=== PATIENT | male | born 2000 | race Caucasian/White ===

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

== ENCOUNTER → 2020-01-26 10:18 | Outpatient (CLI) | payer OTHER, SELFPAY ==
--- NOTE | 2020-01-26 10:22 | MR_ITS ---
PROCEDURE: MR HEAD/BRAIN WO/W CON CLINICAL INDICATION: F/U PINEAL CYST f/u pineal cyst. hx seizures. headaches. symptoms x2yrs. COMPARISON: MR MR HEAD/BRAIN WO/W CON from 10/27/2018 TECHNIQUE: Routine multiplanar multi echo sequences are performed without gadolinium enhancement. FINDINGS: No midline shift, mass effect, intracranial hemorrhage, or hydrocephalus. No evidence of acute infarction. No enhancing lesions are evident. The cerebellopontine angle, cerebellum, and brainstem are unremarkable. There is a 12 mm pineal cyst once again noted not significantly changed. No mastoid effusion. There is bilateral maxillary mucosal thickening and moderate ethmoid mucosal thickening. A left-sided sphenoid sinus retention cyst is present. No sinus air-fluid level. IMPRESSION: Overall stable MRI appearance of the brain. No change in the 12 mm pineal cyst. Paranasal sinus disease once again noted Dictated by: Abdulkadir Lima MD 01/27/2020 08:44 Abdulkadir Lima MD in [place] 01/27/2020 08:44
== END ==
PROVIDERS: PCP Family Medicine; Visit Provider Psychiatry & Neurology Clinical Neurophysiology
DX: E34.8 Other specified endocrine disorders (principal)
CPT/HCPCS: 70553; A9576

== ENCOUNTER → 2021-02-24 09:51 | Outpatient (CLI) | payer OTHER, SELFPAY ==
--- NOTE | 2021-02-24 09:56 | MR_ITS ---
PROCEDURE: MR HEAD/BRAIN WO/W CON CLINICAL INDICATION: PINEAL GLAND CYST COMPARISON: MR MR HEAD/BRAIN WO/W CON from 01/26/2020 TECHNIQUE: Routine multiplanar multi echo sequences are performed without and with gadolinium enhancement. FINDINGS: No midline shift, mass effect, intracranial hemorrhage, or hydrocephalus is evident. The cerebellopontine angles, cerebellum, brainstem and mid brain have an unremarkable appearance. Pineal cyst is once again noted smaller compared to the previous exam 9 x 6 mm previously 12 x 9 mm.. No definite cyst wall enhancement. The pituitary, optic chiasm, corpus callosum, and craniocervical junction have an unremarkable appearance. There is severe mucosal thickening involving the floor of the left maxillary sinus progressed since the previous exam. These areas of thickening have a lobular contour may represent retention cysts. Mild mucosal thickening right maxillary sinus and moderate mucosal thickening of the ethmoid sinuses also with a somewhat lobular component. No left sphenoid sinus. There is a complex oval area of signal intensity with peripheral increased T2 signal and central circular area decreased T2 signal measuring approximately 1 cm. This is directly adjacent to the optic foramen. Consider CT of this region without and with contrast for further evaluation for better analysis and to determine the bony integrity. IMPRESSION: 1. The pineal cyst appears slightly smaller. 2. Paranasal sinus disease which is progressed in the left maxillary area. 3. There is a complex oval area of signal intensity with peripheral increased T2 signal and central circular area decreased T2 signal measuring approximately 1 cm in the region of the left sphenoid sinus superiorly. Orbital/sinus. This is directly adjacent to the optic foramen. Consider CT of this region without and with contrast for further evaluation for better analysis and to determine the bony integrity Dictated by: Abdulkadir Lima MD 02/25/2021 10:33 Abdulkadir Lima MD in [place] 02/25/2021 10:33
== END ==
PROVIDERS: PCP Family Medicine; Visit Provider Psychiatry & Neurology Clinical Neurophysiology
DX: E34.8 Other specified endocrine disorders (principal)
CPT/HCPCS: 70553; A9576

== ENCOUNTER → 2021-03-21 08:32 | Outpatient (CLI) | payer OTHER, SELFPAY ==
--- NOTE | 2021-03-21 08:37 | CT_ITS ---
FINAL REPORT TECHNIQUE: Thin section axial images were obtained from skull base to vertex without contrast. CLINICAL HISTORY: BRAIN MASS OR LESION Attention to the abnormality of the left sphenoid sinus superiorly COMPARISON: MRI dated February 24, 2021 FINDINGS: There is no mass effect or midline shift. There is no hydrocephalus. The ventricles are symmetric in size and configuration. There is no extra-axial or intraparenchymal hemorrhage. The posterior fossa is without acute abnormality. The basilar cisterns are preserved. There is mucoperiosteal thickening in the bilateral maxillary sinuses and ethmoid air cells. An abnormality in the left sphenoid sinus measures 8 mm favoring a mucous retention cyst or polyp. No acute osseous abnormality is identified. IMPRESSION: No acute intracranial abnormality. Abnormality in the left sphenoid sinus favors a mucous retention cyst or polyp. Reviewed, Interpreted and Dictated by Maura De Jesus MD Transcribed by Charli Blackmon Authenticated by Maura De Jesus MD on 03/21/2021 10:11:59 AM [facility]
== END ==
PROVIDERS: PCP Family Medicine; Visit Provider Psychiatry & Neurology Clinical Neurophysiology
DX: G93.9 Disorder of brain, unspecified (principal)
CPT/HCPCS: 70450

== ENCOUNTER → 2021-06-16 08:44 | Outpatient (CLI) | payer OTHER, SELFPAY ==
--- NOTE | 2021-06-16 08:48 | MR_ITS ---
FINAL REPORT CLINICAL HISTORY: BRAIN LESION, PINEAL GLAND CYST. HX SEIZURES X3YKS AGO. 20ML PROHANCE. COMPARISON: 02/24/2021 FINDINGS: Multiplanar MR imaging of the brain was performed without and with contrast with attention to the pituitary. There is no evidence of intracranial hemorrhage or mass. No abnormal extra-axial fluid collection is seen. The ventricular size is within normal limits. There is no evidence of shift of the midline structures. The posterior fossa and brainstem have an unremarkable appearance. No area of abnormal restricted diffusion is identified. There is a persistent, ovoid focus in the left sphenoid sinus measuring 8 mm, favor focal mucosal thickening. There is also mucosal thickening of multiple ethmoid air cells and maxillary sinuses which has partially improved. Otherwise, no abnormal contrast enhancement is seen. Normal major vessel vascular flow voids are noted. The pituitary gland is within normal limits with respect to size. There is a stable pineal cyst measuring 9 x 6 mm. The pituitary stalk is midline. There is no suprasellar mass. The optic chiasm is normal. IMPRESSION: No acute intracranial abnormality identified. Stable pineal cyst. Persistent ovoid focus in the left sphenoid sinus, favor focal mucosal thickening. Reviewed, Interpreted and Dictated by Jw Franco III, MD Transcribed by Julianne Farley Authenticated by Jw Franco III, MD on 06/16/2021 11:23:44 AM [facility][1]
== END ==
PROVIDERS: PCP Family Medicine; Visit Provider Physician Assistant
DX: G93.9 Disorder of brain, unspecified (principal); E34.8 Other specified endocrine disorders
CPT/HCPCS: 70553; A9576

== ENCOUNTER 2021-11-08 09:32 | Emergency (ER) | payer OTHER, SELFPAY ==
--- NOTE | 2021-11-08 10:04 | EXP.UTC ---
Discharge Plan Disposition Patient Disposition: Home, Self-Care Condition: Good Chief Complaint: Upper Respiratory Infection Prescriptions Prescriptions: New prednisone 20 mg tablet 20 mg PO BID Qty: 10 0RF dextromethorphan-guaifenesin [Mucinex DM] 60-1,200 mg tablet extended release 12 hr 1 tab PO DAILY Qty: 20 0RF No Action esomeprazole magnesium 20 mg capsule,delayed release(DR/EC) 20 mg PO DAILY Zyrtec 10 mg capsule 10 mg PO DAILY vitamin B complex [B Complex 1] Tablet 1 tab PO DAILY levetiracetam [Keppra] 500 mg tablet 500 mg PO DIRECTED 30 Days Qty: 90 1RF Rx Instructions: Take 1 tablet (500mg) each morning. Take 2 tablets (1000mg) each night. azithromycin 250 MG tablet 250 mg PO UD DOSE PK Qty: 6 0RF Rx Instructions: Take two (2) tablets today, then one (1) tablet days #2 thru #5 methylprednisolone 4 MG tablets,dose pack 4 mg PO DIRECTED 6 Days Qty: 21 0RF rixbrshdduyyviu-yxamhgwfn-YR 118 ML syrup 5 ml PO Q6HP PRN (Reason: Cough) Qty: 240 0RF Briviact 100 mg tablet 100 mg PO DAILY Label Comments: TAKE 1 TABLET BY MOUTH TWICE DAILY propranolol 40 mg tablet 40 mg PO BID Label Comments: TAKE 1 TABLET BY MOUTH TWICE DAILY lacosamide 200 mg tablet 200 mg PO DAILY Label Comments: TAKE 1 TABLET BY MOUTH TWICE DAILY Referrals Follow up/Referrals: Aysha Orellana APRN [Primary Care Provider] - See instructions Clinical Impressions Clinical Impression: Close exposure to 2019-nCoV, Upper respiratory infection Discharge ED Provider: Candi Taylor [facility] General Chief complaint: Upper Respiratory Infection Stated complaint: sore throat, runny nose, h/a Time Seen by Provider: 11/08/21 10:04 History of Present Illness Provider Complaint: Sore throat, runny nose, headache since this am. History of epilepsy. Mom and sisters had COVID19 last week. Severity: mild Relieving factors: none Exacerbating factors: none Associated symptoms: denies other symptoms Treatments prior to arrival: none Related Data Home Medications Medication Instructions Recorded Confirmed cetirizine 10 mg capsule (Zyrtec) 10 mg PO DAILY allergies 01/10/18 09/02/18 esomeprazole magnesium 20 mg 20 mg PO DAILY GERD 01/10/18 09/02/18 capsule,delayed release vitamin B complex (B Complex 1) 1 tab PO DAILY 08/04/18 09/02/18 brivaracetam 100 mg tablet 100 mg PO DAILY seizure 11/08/21 11/08/21 (Briviact) lacosamide 200 mg tablet 200 mg PO DAILY seizure 11/08/21 11/08/21 propranolol 40 mg tablet 40 mg PO BID seizure 11/08/21 11/08/21 Previous Rx's Medication Instructions Recorded levetiracetam 500 mg tablet 500 mg PO DIRECTED seizure 30 10/05/18 (Keppra) days #90 tabs azithromycin 250 mg tablet 250 mg PO UD DOSE PK #6 tabs 11/13/18 peziwmucwvwewas-hxmjdemwjipcoks-OK 5 ml PO Q6HP PRN Cough ##240 11/13/18 2 mg-30 mg-10 mg/5 mL oral syrup methylprednisolone 4 mg tablets in 4 mg PO DIRECTED 6 days ##21 11/13/18 a dose pack dextromethorphan-guaifenesin ER 60 1 tab PO DAILY #20 tabs 11/08/21 mg-1,200 mg tab,extend release,12hr (Mucinex DM) prednisone 20 mg tablet 20 mg PO BID #10 tabs 11/08/21 Allergies Allergy/AdvReac Type Severity Reaction Status Date / Time No Known Allergies Allergy Verified 11/08/21 10:11 [facility] Medical History (Updated 11/08/21 @ 10:27 by CORTNEY Molina) Abnormal EKG Abnormal Holter monitor finding Dizziness Numbness and tingling of both feet Palpitations Seizure disorder Social History Smoking Status: Never smoker second hand exposure: No alcohol intake: never substance use type: denies use current occupational status: student household members: family housing: house ROS Obtained: Yes All systems reviewed & no additional complaints except as documented Constitutional C
[2021-11-08 10:08] VITALS: BP 129/77; PULSE 87; RESP 16; TEMP 36.5; O2SAT 100; BMI 29.1
[2021-11-08 10:44] VITALS: BP 129/77; PULSE 87; RESP 16; TEMP 36.5
== END 2021-11-08 10:45 | disposition home or self-care (01) ==
PROVIDERS: Emergency Provider Physician Assistant; PCP Nurse Practitioner Family
DX: U07.1 COVID-19
CPT/HCPCS: 99212; C9803; G0463; U0003; U0005

== ENCOUNTER → 2022-02-17 11:40 | Outpatient (CLI) | payer OTHER, SELFPAY | PROVIDERS: PCP Nurse Practitioner Family; Visit Provider Psychiatry & Neurology Clinical Neurophysiology | DX: E34.8 Other specified endocrine disorders (principal); G40.009 Localization-related (focal) (partial) idiopathic epilepsy and epileptic syndromes with seizures of localized onset, not intractable, without status epilepticus ==

== ENCOUNTER → 2022-02-18 09:53 | Outpatient (CLI) | payer OTHER, SELFPAY ==
--- NOTE | 2022-02-18 10:06 | MR_ITS ---
FINAL REPORT CLINICAL HISTORY: PINEAL GLAND CYST seizures when 17 last one 3 years ago f/u pineal gland cyst COMPARISON: 06/16/2021 FINDINGS: Multiplanar MR imaging of the brain was performed without and with contrast. There is no evidence of intracranial hemorrhage. There is a stable 9 x 6 mm pineal cyst. No acute mass is identified. No abnormal extra-axial fluid collection is seen. The ventricular size is within normal limits. There is no evidence of shift of the midline structures. The posterior fossa and brainstem have an unremarkable appearance. No area of abnormal restricted diffusion is identified. No abnormal contrast enhancement is seen. Normal major vessel vascular flow voids are noted. There is mucosal thickening in multiple sinuses. IMPRESSION: No acute intracranial abnormality identified. Stable pineal cyst. Reviewed, Interpreted and Dictated by Jw Franco III, MD Transcribed by Amber Valenzuela Authenticated and . [facility]
== END ==
PROVIDERS: PCP Nurse Practitioner Family; Visit Provider Psychiatry & Neurology Clinical Neurophysiology
DX: E34.8 Other specified endocrine disorders (principal); G40.009 Localization-related (focal) (partial) idiopathic epilepsy and epileptic syndromes with seizures of localized onset, not intractable, without status epilepticus
CPT/HCPCS: 70553; A9576

== ENCOUNTER → 2022-02-20 14:31 | Outpatient (CLI) | payer OTHER, SELFPAY ==
[2022-02-20 14:59] LABS: Collection Time,Urine 24 hours; Total Volume,Urine 1400 mL (800-1800)
[2022-02-20 15:32] LABS: Patient Height,Urine 72 inches; Patient Weight,Urine 220 lbs
[2022-02-20 15:59] LABS: Creatinine 24 Hour,Urine 2086 mg/24hr (630-2500)
[2022-02-20 16:04] LABS: Creatinine,Urine Random 149 mg/dL (Not Estab.)
[2022-02-20 16:07] LABS: Creatinine Clearance Urine 163.6 mL/min (85-125)
== END ==
PROVIDERS: PCP Nurse Practitioner Family; Visit Provider Psychiatry & Neurology Clinical Neurophysiology
DX: Z01.812 Encounter for preprocedural laboratory examination (principal); G40.009 Localization-related (focal) (partial) idiopathic epilepsy and epileptic syndromes with seizures of localized onset, not intractable, without status epilepticus; E34.8 Other specified endocrine disorders
CPT/HCPCS: 36415; 82575

== ENCOUNTER 2024-04-03 12:44 | Outpatient (CLI) | payer OTHER, SELFPAY ==
--- NOTE | 2024-04-03 12:48 | MR_ITS ---
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 There is a 9 x 6 mm pineal cyst again noted, stable when compared to the prior MRIs of 2021 and 2020. There is no evidence of intracranial hemorrhage or mass. No abnormal extra-axial fluid collection is seen. The ventricular size is within normal limits. There is no evidence of shift of the midline structures. The posterior fossa and brainstem have an unremarkable appearance. No area of abnormal restricted diffusion is identified. No abnormal contrast enhancement is seen. Normal major vessel vascular flow voids are noted. There is minimal right maxillary mucoperiosteal thickening noted. IMPRESSION: 9 x 6 mm pineal cyst again noted, stable since 2020. No new mass or enhancement is seen intracranially. Reviewed, Interpreted and Dictated by Tim De La Cruz MD Transcribed by Elaine Huerta Authenticated and [facility]
[2024-04-03] MEDS: SODIUM CHLORIDE 0.9% 10ML SYR (RAD ONLY) 10 ML IV (13:48)
[2024-04-03] MEDS: GADOTERIDOL INJ 20ML SYRINGE 20 ML IV (13:48)
== END 2024-04-03 23:59 | disposition home or self-care (01) ==
LOC: RAD 12:45
PROVIDERS: PCP Nurse Practitioner Family; Visit Provider Psychiatry & Neurology Clinical Neurophysiology
DX: E34.8 Other specified endocrine disorders (principal)
CPT/HCPCS: 70553; A9576

== ENCOUNTER 2024-05-10 18:01 | Emergency (ER) | payer OTHER, SELFPAY ==
[2024-05-10 18:02] VITALS: BP 137/85; PULSE 88; RESP 18; TEMP 36.8; O2SAT 100; BMI 31.1
--- NOTE | 2024-05-10 18:24 | XR_ITS ---
PROCEDURE INFORMATION: Exam: XR Left Foot Exam date and time: 05/10/2024 6:26 PM Age: 23 years old Clinical indication: Pain; Foot; Left; Additional info: Fant[place] ran over foot this morning. Swelling and bruising to mid foot TECHNIQUE: Imaging protocol: Radiologic exam of the left foot. Views: 3 or more views. COMPARISON: CR XR FOOT LT MIN 3V 05/10/2024 6:26 PM FINDINGS: Bones/joints: Normal. Soft tissues: Normal. IMPRESSION: No acute findings.
--- NOTE | 2024-05-10 18:24 | XR_ITS ---
PROCEDURE INFORMATION: Exam: XR Left Ankle Exam date and time: 05/10/2024 6:28 PM Age: 23 years old Clinical indication: Pain; Foot; Left; Additional info: Edmar ran over foot this morning. Swelling and bruising to mid foot TECHNIQUE: Imaging protocol: Radiologic exam of the left ankle. Views: 3 or more views. COMPARISON: CR ANKCMLT XR ankle LT min 3V 03/31/2018 7:03 PM FINDINGS: Bones/joints: Normal. Soft tissues: Normal. IMPRESSION: No acute findings.
--- NOTE | 2024-05-10 18:37 | PC.NURSE ---
PT TO RADIOLOGY
--- NOTE | 2024-05-10 18:43 | PC.NURSE ---
PT RETURNED FROM XR
--- NOTE | 2024-05-10 18:45 | PC.NURSE ---
rounded on the pt. the pt voices that he does not need anything at this time. call light is within reach of the pt.
--- NOTE | 2024-05-10 18:50 | [facility].EDGENADL ---
Discharge Plan Disposition Patient Disposition: Home, Self-Care Prescriptions Prescriptions: New ibuprofen 800 mg tablet 800 mg PO Q8H PRN (Reason: pain) Qty: 15 0RF No Action lacosamide 100 mg tablet 100 mg PO BID propranolol 80 mg tablet 80 mg PO BID lacosamide 200 mg tablet 200 mg PO BID Patient Comments: TAKE 1 TABLET BY MOUTH TWICE DAILY Briviact 100 mg tablet 100 mg PO BID Patient Comments: TAKE 1 TABLET BY MOUTH TWICE DAILY Referrals Follow up/Referrals: William Camejo DO [Staff Physician] - See instructions Aysha Orellana APRN [Primary Care Provider] - See instructions Activity Restrictions/Add. Instructions Additional Instructions/Restrictions: At this time it was felt you are safe to be discharged home. If new or worsening symptoms please do not hesitate to return the emergency department. Please take your medication as prescribed and call and schedule an appoint with Dr. Camejo as soon as you are able if symptoms persist. For pain please take Tylenol 1000 mg and your ibuprofen 800 mg as they were prescribed with a little bit of food. Please rest your foot as you need, elevated, use compression and intermittent application of cold packs. Clinical Impressions Clinical Impression: Foot trauma Print Language Print Language: Sami Discharge ED Provider: Amador Santos General Adult HPI General Chief complaint: PAIN Stated complaint: [id number] LT ft inj, run over forklift Time Seen by Provider: 05/10/24 18:28 Mode of Arrival: Ambulatory Source of Information: Patient Limitations: No Limitations Description of Symptoms (Recalled from ER Triage Doc. by RN): LEFT FOOT PAIN AFTER RAN OVER WITH FORKLIFT ABOUT 1130 TODAY. BRUISING AND SWELLING NOTED, PULSES PALPABLE History of Present Illness HPI narrative: Patient is a 23-year-old male with no pertinent past medical history presents emergency department for evaluation of left foot trauma. It was ran over by a forklift, he has had limited ability to bear weight since but can with difficulty. Due to pain he presents here for continued evaluation. Related Data Home Medications ?Medication ?Instructions ?Recorded ?Confirmed brivaracetam 100 mg tablet 100 mg PO BID seizure 01/04/23 05/10/24 (Briviact) lacosamide 100 mg tablet 100 mg PO BID 01/04/23 05/10/24 lacosamide 200 mg tablet 200 mg PO BID seizure 01/04/23 05/10/24 propranolol 80 mg tablet 80 mg PO BID 01/04/23 05/10/24 Previous Rx's ?Medication ?Instructions ?Recorded ibuprofen 800 mg tablet 800 mg PO Q8H PRN pain #15 tabs 05/10/24 Allergies Allergy/AdvReac Type Severity Reaction Status Date / Time No Known Allergies Allergy Verified 01/04/23 11:25 [facility] Disclaimer: The information contained in this section may have been updated after the patient was seen, as this information can be updated by other users. Medical History (Updated 05/10/24 @ 18:54 by Amador Santos MD) Seizure disorder Abnormal EKG Palpitations Numbness and tingling of both feet Dizziness Abnormal Holter monitor finding Family History (Updated 01/04/23 @ 11:31 by Sunitha Kauffman LPN) Mother Hypertension Social History (Updated 01/04/23 @ 11:32 by Sunitha Kauffman LPN) Smoking Status: Never smoker second hand exposure: No alcohol intake: never substance use type: denies use current occupational status: employed Travel in the last 8 weeks: None household members: family housing: house Have you lived/traveled outside [place] in past 30 days?: No Contact w/someone who lives/traveled outside [place] past 30 days?: No Exposure to someone with infectious disease in past 14 days?: No Do you have a fever (greater than 100.4 F or 38 C)?: No Have you tested positive for COVID-19: No Exposed to someone with COVID-19 in past 14 days?: No Do you have a sore throat?: No Do you have a cough?: No Do you have any weakness?: No Do you have any diarrhea?: No Are you experiencing any unusual bleeding?: No Do you have any muscle aches/pain?: No Do you have any abdominal pain?: No Are you experiencing loss of taste or smell?: No Other Medical History Have you received the Pneumonia Vaccine: Yes ROS Obtained: Yes Systems reviewed as appropriate & no additional complaints except as documented Physical Exam General General appearance: alert Head Head exam: atraumatic and normocephalic Eye Eye exam: Present PERRL ENT ENT exam: Present mucous membranes moist Neck Neck exam: Present normal inspection Chest Chest inspection: Present normal inspection and symmetric chest wall rise Respiratory Respiratory exam: Absent respiratory distress Cardiovascular Cardiovascular exam: Present regular rate and normal rhythm Extremities Exam Extremities exam: Present other (Edematous left foot distal to the ankle with scattered bruising. Distal capillary refill less than 2 seconds, diffuse mild tenderness, no pinpoint severe tenderness. Sensation intact light touch all digits.) Neurological Exam Neurological exam: Present alert Psychiatric Psychiatric exam: Present normal affect Skin Skin exam: Present warm and dry Medical Decision Making Medical Records Screening: Per USPSTF and CDC recommendations, given the prevalence of disease in our region, it is our hospital?s policy to screen for HIV and viral Hepatitis for all patients aged 18 and over and those with ongoing risk factors. Jacob Inquiry Pt receiving controlled substance: No Vital Signs: 05/10/24 18:02 Temperature 98.3 F Temperature Source Oral Pulse Rate [Radial] 88 Respiratory Rate 18 Blood Pressure [Right Arm] 137/85 Blood Pressure Mean [Right Arm] 102 Blood Pressure Source [Right Arm] Automatic Cuff Blood Pressure Position [Right Arm] Sitting 02 Sat by Pulse Oximetry 100 Oxygen Delivery Method Room Air Orders (Tests/Meds): ED MEDICATIONS Discontinued Medications Generic Name Dose Route Start Last Admin Trade Name Freq PRN Reason Stop Dose Admin Acetaminophen 1,000 mg 05/10/24 18:53 05/10/24 19:00 Acetaminophen 500mg Tab PO 05/10/24 18:54 1,000 mg ONCE ONE Administration Ibuprofen 800 mg 05/10/24 18:49 05/10/24 18:59 Ibuprofen 400 Mg Tablet PO 05/10/24 18:50 800 mg ONCE ONE Administration ORDERS Category Date Time Status XR ankle LT min 3V Stat Exams 05/10/24 18:24 Completed XR foot LT min 3V Stat Exams 05/10/24 18:24 Completed HIV Combo Stat Lab 05/10/24 18:22 Ordered Hepatitis C Ab Qual. W/ RFX Stat Lab 05/10/24 18:22 Ordered Medical Decision Narrative: In summary patient is a 23-year-old male past medical history described above who presents emergency department for evaluation of crush injury of his left foot. Patient is hemodynamically stable nontoxic-appearing upon arrival, afebrile. Differential diagnosis includes fracture, musculoskeletal strain, among others. I do not have concern for compartment syndrome based on my physical exam. Workup we conducted with plain films. Initial inventions include Tylenol and ibuprofen. X-rays informally interpreted by me, no acute significantly displaced fracture. Given this patient was provided crutches and will be weightbearing as tolerated will follow-up with Dr. Camejo on outpatient basis will be prescribed ibuprofen 800s. Critical Care Critical Care Time Critical Care Time: No
[2024-05-10] MEDS: IBUPROFEN 400 MG TABLET 800 MG PO (18:59)
[2024-05-10] MEDS: ACETAMINOPHEN 500MG TAB 1000 MG PO (19:00)
[2024-05-10 19:29] VITALS: BP 128/72; PULSE 74; RESP 16; TEMP 36.6; O2SAT 99
== END 2024-05-10 19:30 | disposition home or self-care (01) ==
PROVIDERS: Emergency Provider Emergency Medicine; PCP Nurse Practitioner Family
DX: S90.32XA Contusion of left foot, initial encounter (principal); V83.5XXA Driver of special industrial vehicle injured in nontraffic accident, initial encounter
CPT/HCPCS: 73610; 73630; 99284